=== PATIENT | male | born 2000 | race African-American/Black ===

== ENCOUNTER → 2022-02-22 09:49 | Outpatient (CLI) | payer BC, SELFPAY ==
--- NOTE | ~2022-02-22 | US_ITS ---
EXAMINATION: US abdomen complete EXAM DATE: 02/22/2022 10:40 INDICATION: Nausea and Vomiting TECHNIQUE: Multiple grayscale and Doppler images of the complete abdomen were obtained (by a technolo gist who performed the scan) and subsequently reviewed. There is no prior study for comparison. FINDINGS: The abdominal aorta is normal in caliber. Visualized portion IVC is patent. The pancreatic head a nd body are normal in appearance. The pancreatic tail is not visualized. The liver has normal echogenicity and contour. There are no focal liver lesions identified. There is no evidence of intrahepatic biliary duct dilation. Portal venous flow was seen in the hepatopedal , normal direction and has normal Doppler waveform. Common bile duct measures 4 mm, which is normal. The gallbladder wall is normal in thickness, with ex pected amount of distention. No sonographic evidence of pericholecystic fluid. There is no cholelit hiases. Technologist performing exam reports patient did not demonstrate sonographic Oliveira's sign. Please note that this sign is less reliable in patients who have received pain medication. Right kidney: There is normal contour and echogenicity. It measures 8.4 x 4.8 x 5.1 centimeters. T here are no focal renal lesions identified. There is no hydronephrosis. Left kidney: There is normal contour and echogenicity. It measures 10.3 x 5.6 x 5.6 centimeters. T here are no focal renal lesions identified. There is no hydronephrosis. The spleen measures 11.3 centimeters and is morphologically normal. IMPRESSION: Unremarkable complete abdominal ultrasound exam. Reviewed, dictated and finalized at location A.
--- NOTE | ~2022-02-22 | XR_ITS ---
EXAMINATION: XR UGIAC wo kub DATE: 02/22/2022 10:59 INDICATION: Chronic nausea and vomiting. TECHNIQUE: The patient drank thick barium, gas-producing crystals, and thin barium. A total of 617 fl uoroscopic images of the esophagus, stomach, and proximal small bowel were obtained. Fluoroscopy expo sure time was 1.6 minutes. COMPARISON: None. FINDINGS: The esophagus is normal without mass or stricture. Esophageal motility is normal. There is no hiatal hernia. There was a single episode of spontaneous gastroesophageal reflux of a small to mod erate amount of contrast into the distal esophagus while changing positions during imaging of the sto mach. No additional gastroesophageal reflux was elicited with provocative maneuvers. The stomach and proximal small bowel are normal. IMPRESSION: 1. Single episode of spontaneous gastroesophageal reflux. Otherwise normal upper GI study. Reviewed, dictated and finalized at location B. IMPRESSION: 1. Single episode of spontaneous gastroesophageal reflux. Otherwise normal uppe r GI study.
== END ==
PROVIDERS: PCP Physician Assistant; Visit Provider Physician Assistant
DX: R10.84 Generalized abdominal pain (principal); R11.2 Nausea with vomiting, unspecified
CPT/HCPCS: 74246; 76700

== ENCOUNTER 2024-07-09 13:30 | Outpatient (CLI) | payer BC, SELFPAY ==
--- NOTE | 2024-07-09 | ECHO_ITS ---
Patient Info Name: Jorge Veloz Age: 24 years : 2000 Gender: Male Ht: 70 in Wt: 220 lbs BSA: 2.25 m2 HR: 65 bpm BP: 149 / 94 mmHg Heart Rhythm: Sinus Rhythm Technical Quality: Good Exam Date: 07/09/2024 1:47 PM Exam Location: Echo Lab Patient Status: Outpatient Admit Date: 07/09/2024 Staff Ordering Physician: DianaKerry PA-C Art Specialist: Gisela Vasquez RDCS Attending Provider: Kerry Fraser PA-C Exam Type: CA echo doppler color flow Study Info Indications - NUR Complete two-dimensional, color flow and Doppler transthoracic echocardiogram is performed. Summary 1. Complete two-dimensional, color flow and Doppler transthoracic echocardiogram is performed. 2. Left ventricular chamber dimension is normal. 3. Left ventricular systolic function is normal, estimated at 60-65%. 4. The left ventricular diastolic function is normal. 5. Right ventricular systolic function is normal. 6. There is mild tricuspid valve regurgitation. Left Ventricle Left ventricular chamber dimension is normal. Left ventricular systolic function is normal, estimated at 60-65%. There is no increased left ventricular wall thickness. The left ventricular diastolic function is normal. Right Ventricle Right ventricular chamber dimension is normal. Right ventricular systolic function is normal. Left Atria Left atrial chamber dimension is normal. Right Atria Right atrial chamber dimension is normal. Atrial Septum Intact interatrial septum visualized by color flow imaging. Aortic Valve The aortic valve is trileaflet. There is no aortic valve stenosis. There is no aortic valve regurgitation. Pulmonic Valve The pulmonic valve is normal. There is trace pulmonic regurgitation. Mitral Valve There is trace mitral valve regurgitation. Tricuspid Valve There is mild tricuspid valve regurgitation. Pericardium/Pleural There is no pericardial effusion. Inferior Vena Cava Normal inferior vena cava with >50% collapse upon inspiration consistent with normal right atrial pressure, 3 mmHg. Aorta The aortic root size at the sinus of Valsalva is normal. Left Ventricular Outflow Tract Name Value Normal LVOT 2D LVOT Diameter 2.0 cm LVOT Doppler LVOT Peak Gradient 6 mmHg LVOT Mean Gradient 3 mmHg LVOT VTI 23 cm LVOT VTI/AV VTI Ratio 0.8 LVOT Stroke Volume 72 ml LVOT CO 5.0 l/min LVOT CI 2.2 l/min/m2 Pulmonic Valve Name Value Normal RVOT Doppler RVOT Peak Gradient 2 mmHg PV Doppler PV Peak Gradient 5 mmHg Mitral Valve Name
== END 2024-07-09 13:31 | disposition home or self-care (01) ==
PROVIDERS: PCP Physician Assistant; Visit Provider Physician Assistant
DX: R06.09 Other forms of dyspnea (principal); I36.1 Nonrheumatic tricuspid (valve) insufficiency
CPT/HCPCS: 93306

== ENCOUNTER 2024-07-09 14:25 | Outpatient (CLI) | payer BC, SELFPAY ==
--- NOTE | ~2024-07-09 | XR_ITS ---
XR chest 2V Ordering provider: Kerry Adam, [place] History: 24 years Male with . intermittent sob with chest tightness . Comparison: None. FINDINGS: MEDIASTINUM: The cardiac silhouette is not enlarged. LUNGS: No infiltrates, effusions or pneumothorax. Vague opacities projected over the right first rib which may be a summation shadow. Three-month follo w-up advised. OTHER: No free air under the diaphragm. IMPRESSION: Vague opacity in the right apical area. Three-month follow-up advised No acute cardiopulmonary pathology. Reviewed, dictated and finalized at location A.
== END 2024-07-09 14:26 ==
PROVIDERS: PCP Physician Assistant; Visit Provider Physician Assistant
DX: R06.09 Other forms of dyspnea (principal)
CPT/HCPCS: 71046

== ENCOUNTER 2024-08-09 14:36 | Outpatient (CLI) | payer BC, SELFPAY ==
--- NOTE | ~2024-08-09 | CT_ITS ---
EXAMINATION:CT diagnostic chest w con DATE: 08/09/2024 14:58 INDICATION: Abnormal chest radiographs. TECHNIQUE: Computed tomography (CT) of the chest was performed with 75 mL Omnipaque 350 intravenous c ontrast. Automated exposure control and iterative reconstruction technique were employed. The dose-le ngth product (DLP) was 348.97 mGy-cm. COMPARISON: Chest CT 07/09/2024 FINDINGS: There is no pneumonia or pleural effusion. The heart size is normal. No pericardial effusio n. There are Schmorl's nodes at multiple levels in the spine. IMPRESSION: 1. No significant abnormality. Reviewed, dictated and finalized at location A.
== END 2024-08-09 14:37 | disposition home or self-care (01) ==
PROVIDERS: PCP Physician Assistant; Visit Provider Physician Assistant
DX: R93.89 Abnormal findings on diagnostic imaging of other specified body structures (principal)
CPT/HCPCS: 71260; Q9967